=== PATIENT | male | born 1985 | race Caucasian/White ===

== ENCOUNTER 2017-06-25 15:45 | Emergency (ER) | payer OTHER ==
[~2017-06-25] VITALS: Ht 175.3 cm; Wt 68.0 kg
[2017-06-25] MEDS ORDERED: FLUO40CA49 PO (16:01)
[2017-06-25] MEDS ORDERED: TRAZ-144 PO (16:01)
[2017-06-25] MEDS ORDERED: LITH300T3 PO (16:01)
[2017-06-25] MEDS ORDERED: QUET400T PO (16:01)
[2017-06-25] MEDS ORDERED: FLUO-120 PO (16:01)
--- NOTE | 2017-06-25 16:15 | NUR ---
PT IS IN ROOM #1B. DR BLANCHARD EVALUATED THE PT. RUDOLPH ECHEVERRIA FROM [facility] CALLED TO VERIFY IF PT IS IN [place] [facility]. 3D TECHNOLOGIST WAS CALLED TO EVALUATE THE PT. SUICIDAL PRECAUTIONS WERE IMPLEMENTED BY SENIOR LICENSING MANAGERSYLVIA PACE. PT IS UNDER DIRECT SUPERVISION OF SENIOR LICENSING MANAGERSYLVIA PACE.
--- NOTE | 2017-06-25 16:49 | NUR ---
Called [facility] for psych eval as requested by Dr. Varma, eta 30 mins.
--- NOTE | 2017-06-25 16:51 | NUR ---
4:15pm: TRISH called by SYLVIA Ventura for a consult. TRISH arrived to the ED and met with SYLVIA Ventura and Dr. Varma to consult about patient. SW then met with patient in his ED room, where patient's friend Ruth was also present. Patient was in agreement to meet with SW, and when SW asked if he was fine with his friend being in the room, patient stated that she could stay in the room. Patient was brought into the ED today by his friend Ruth and her mother who were concerned about some suicidal comments that patient had posted on his Facebook page. Patient is a 31 year old male who rents a room from a friend's house. Patient works as an extra for TV shows, and reports to have been functioning well. Patient reports that he has been diagnosed with Schizoaffective Disorder, Bipolar Disorder, and Depression, and that he had stopped taking his medications for the past couple of months (see physician's notes for list of medications) because "I thought I didn't need them anymore". Patient reports that he became "stressed" today because of "people's issues" and "people's struggles". Patient's friend Ruth reported that according to patient's roommate, patient began acting out this morning and breaking things in the house, and his roommate gave him his meds to take. SW assessed for history and current thoughts/attempts of suicide, and patient reported hx of suicidal ideations and a previous attempt of having his belt wrapped around his neck, but that he changed his mind at the last minute due to "my will to live". SW asked patient about the suicidal thoughts he had today, and patient reported that he had written "some things" on Facebook, but currently denied suicidal thoughts. Ruth offered to show SW the comments that patient had posted on Facebook, and SW asked patient's permission before reading his posts. Patient stated that SW can read his posts. Ruth pulled up the Facebook posts on her cell phone and SW read the posts patient had made, and one particular one read "I have a gun in my mouth right now". When SW asked patient about this comment, patient stated that "I wanted to hit myself with hate". SW asked patient if he had weapons at home, and patient denied having weapons. During the interview, patient was cooperative with SW, his speech was clear, slightly pressured and at times incomprehensible; his responses were sometimes delayed and they were mostly 1-2 word responses. Patient's affect was flat, and he did not consistently maintain eye contact throughout the interview. Patient often looked down or away from SW. No hallucinations or delusions present. Patient's mother is listed on the face sheet as the emergency contact, and SW asked patient if his mother can be contacted. Patient gave verbal consent to having the hospital contact the patient's mother, if necessary. Patient's friend Ruth also provided her phone number [phone]. then consulted with Dr. Varma, and it was agreed that the can patcher would be contacted. SYLVIA Leonard called [facility] [phone] for an evaluation.
[2017-06-25 17:01] LABS: BASOPHILS # (AUTO) 0.2 K/uL (0.0-8.0); BASOPHILS % (AUTO) 3.2 % (0.0-2.0); EOSINOPHILS % (AUTO) 0.2 % (0.0-7.0); HEMATOCRIT 49.3 % (40-50); HEMOGLOBIN 16.4 G/DL (14.0-18.0); LYMPHOCYTES # (AUTO) 1.3 K/UL (0.8-4.8); LYMPHOCYTES % (AUTO) 20.3 % (20.5-51.5); MEAN CORPUSCULAR HEMOGLOBIN 28.6 UUG (27.0-31.0); MEAN CORPUSCULAR HGB CONC 33 g/dL (32.0-37.0); MEAN CORPUSCULAR VOLUME 85.7 FL (82.0-92.0); MONOCYTES # (AUTO) 0.5 K/UL (0.1-1.30); MONOCYTES % (AUTO) 7.4 % (0.0-11.0); NEUTROPHILS # (AUTO) 4.6 K/UL (1.8-8.9); NEUTROPHILS % (AUTO) 68.9 % (38.5-71.5); PLATELET COUNT (AUTO) 204 K/UL (150-450); RED BLOOD CELL COUNT(AUTO) 5.75 MIL/UL (4.7-6.1); WHITE BLOOD COUNT (AUTO) 6.6 K/UL (4.0-11.2)
[2017-06-25 17:06] LABS: CARBON DIOXIDE 26 mmol/L (21-32); CHLORIDE 101 mmol/L (98-107); GLUCOSE 133 mg/dL (74-106); POTASSIUM 3.5 mmol/L (3.5-5.1); UREA NITROGEN, BLOOD 12 mg/dL (7-18)
[2017-06-25 17:11] LABS: *BILIRUBIN,URIN NEGATIVE (NEGATIVE); *BLOOD, URINE NEGATIVE (NEGATIVE); *CLARITY,URINE CLEAR (CLEAR); *COLOR,URINE YELLOW (YELLOW); *KETONES,URINE NEGATIVE (NEGATIVE); *PROTEIN,URINE 1+ (NEGATIVE); *UROBILINOGEN,URINE 0.2 E.U./dl (NORMAL); LEUKOCYTE ESTERASE ,URINE NEGATIVE (NEGATIVE); NITRITE, URINE NEGATIVE (NEGATIVE); PH,URINE 5.5 (5.0-8.0); UGLUCOSE NEGATIVE (NEGATIVE)
[2017-06-25 17:12] LABS: ACETAMINOPHEN < 2.0 ug/mL (10-30); ALANINE AMINOTRANSFERASE 29 U/L (16-63); ALKALINE PHOSPHATASE 42 U/L (50-136); ASPARTATE AMINOTRANSFERASE 18 U/L (15-37); BILIRUBIN,DIRECT 0.1 mg/dL (0.0-0.2); BILIRUBIN,TOTAL 0.6 mg/dL (0.2-1.0); TOTAL PROTEIN, SERUM 8.3 g/dL (6.4-8.2)
[2017-06-25 17:14] LABS: ETHANOL < 3 MG/DL (0-0)
[2017-06-25] MEDS ORDERED: ONDANSETRON ODT 4 MG TAB.RAPDIS SL ONE (17:15)
[2017-06-25 17:20] LABS: *AMPHETAMINE, URINE NEGATIVE (NEGATIVE); *BARBITURATE, URINE NEGATIVE (NEGATIVE); *CANNABINOID, URINE NEGATIVE (NEGATIVE); *COCCAINE, URINE NEGATIVE (NEGATIVE); *OPIATE, URINE NEGATIVE (NEGATIVE); *PHENCYCLIDINE SCREEN,URINE NEGATIVE (NEGATIVE)
[2017-06-25 17:23] LABS: MUCUS,URINE MANY /LPF (0-FEW)
[2017-06-25] MEDS ORDERED: ONDANSETRON ODT 4 MG TAB.RAPDIS ONE (17:33)
[2017-06-25 17:35] LABS: THYROID STIMULATING HORMONE 2.135 mIU/mL (0.358-3.740)
--- NOTE | 2017-06-25 19:02 | NUR ---
SANJU CHAVEZ EVALUATED THE PT. PT'S LAB WORK AND TELMETRY INFORMATION WAS SENT TO [facility] , ACCORDING SANJU CHAVEZ REQUEST.
--- NOTE | 2017-06-25 19:09 | NUR ---
REPORT WAS GIVEN TO MAINTENANCE DIRECTOR RN.
--- NOTE | 2017-06-25 19:30 | NUR ---
PATIENT IS RESTING QUIETLY. 1:1 SITTER AT BEDSIDE FOR SAFETY.
[2017-06-25] MEDS ORDERED: LITHIUM CARBONATE 300 MG TABLET PO ONE (22:45)
[2017-06-25] MEDS ORDERED: QUETIAPINE FUMARATE 25 MG TABLET PO ONE (22:45)
[2017-06-25] MEDS ORDERED: QUETIAPINE FUMARATE 200 MG TABLET ONE (22:53)
[2017-06-25] MEDS ORDERED: LITHIUM CARBONATE 300 MG TABLET ONE (22:53)
--- NOTE | 2017-06-25 23:21 | NUR ---
SPOKE WITH SYLVIA CHUN FROM [facility] WITH REPORT.
--- NOTE | 2017-06-25 23:37 | NUR ---
CALLED EMR, SPOKE WITH PARVEZ. STATES SINCE PATIENT HAS [facility], OK FOR [facility] TO BILL THIS HOSPITAL IF [facility] DOES NOT PAY FOR TRANSPORT. ANATOMY PROFESSOR TAMI NOTIFED. AWAITNG CALL BACK.
--- NOTE | 2017-06-25 23:58 | NUR ---
SPOKE WITH TAMI RECOVERY ENGINEER, OK FOR TRANSPORT. EMR CALLED BACK ETA 60MIN.
--- NOTE | 2017-06-26 00:34 | NUR ---
RECEIVED CALL FROM EMR, PERMANENT WAVER AT [phone]. EMR WILL TRY SOONER.
--- NOTE | 2017-06-26 01:32 | NUR ---
[facility] TRANSPORT HERE. REPORT AND ALL RECORDS PROVIDED.
--- NOTE | 2017-06-26 01:34 | NUR ---
SYLVIA CHUN FROM [facility] CONTACTED THAT PATIENT IS BEING PICKED UP AT THIS TIME.
== END 2017-06-26 01:50 | disposition short-term general hospital (02) ==
LOC: ER 15:46
DX: T56.891A Toxic effect of other metals, accidental (unintentional), initial encounter (principal); T43.591A Poisoning by other antipsychotics and neuroleptics, accidental (unintentional), initial encounter; T43.211A Poisoning by selective serotonin and norepinephrine reuptake inhibitors, accidental (unintentional), initial encounter; F32.9 Major depressive disorder, single episode, unspecified; R45.851 Suicidal ideations; F41.9 Anxiety disorder, unspecified; Y92.9 Unspecified place or not applicable
CPT/HCPCS: 36415; 70030-TC; 80307; 84443; 85025; 85730; 93005; A4663; G0480; G0480-TC; J7030; Q0162